=== PATIENT | female | born 1985 | race Caucasian/White ===

== ENCOUNTER 2019-01-05 22:06 | Inpatient (IN) | payer SELFPAY ==
[2019-01-05] MEDS ORDERED: Sodium Chloride 0.9% 1,000 ML IV STA (22:29)
[2019-01-05] MEDS ORDERED: cefTRIAXone 1 gm 1 GM/100 ML BAG IVPB STA (22:32)
[2019-01-05 22:41] LABS: URINE APPEARANCE CLEAR (CLEAR); URINE BILIRUBIN NEGATIVE (NEGATIVE); URINE BLOOD SMALL (NEGATIVE); URINE GLUCOSE (UA) NEGATIVE (NEGATIVE); URINE LEUKOCYTE ESTERASE SMALL Leu/uL (NEGATIVE); URINE PROTEIN NEGATIVE mg/dL (<30 mg/dL); URINE UROBILINOGEN 0.2 E.U./dL (<1 E.U./dL)
--- NOTE | 2019-01-05 22:44 | ED PDOC ---
Arrival/HPI - General Chief Complaint: Back Pain Time Seen by Provider: 01/05/19 22:09 Historian: Patient - History of Present Illness Narrative History of Present Illness (Text): 01/05/19 22:38 33 year old female, with no significant past medial history, presents to the emergency department complaining of back pain for the past few days. Patient is a poor historian. Patient reports dysuria and right flank pain. Patient denies any fever at home, but patient is noted to be febrile and tachycardic in the Emergency room. Patient reports mild cough, but denies any chills, chest pain, shortness of breath, nausea, vomiting, diarrhea, neck pain, headache, dizziness, or any other complaints. Time/Duration: Other (couple days) Symptom Onset: Gradual Symptom Course: Unchanged Activities at Onset: Light Context: Home Past Medical History - Provider Review Nursing Documentation Reviewed: Yes - Infectious Disease Hx of Infectious Diseases: None - Reproductive Currently : No - Cardiac Hx Cardiac Disorders: No - Pulmonary Hx Respiratory Disorders: No - Neurological Hx Neurological Disorder: No - HEENT Hx HEENT Disorder: No - Renal Hx Renal Disorder: No - Endocrine/Metabolic Hx Endocrine Disorders: No - Hematological/Oncological Hx Blood Transfusions: No Hx Blood Transfusion Reaction: No - Integumentary Hx Dermatological Disorder: No - Musculoskeletal/Rheumatological Hx Falls: No - Gastrointestinal Hx Gastrointestinal Disorders: No - Genitourinary/Gynecological Hx Genitourinary Disorders: No - Psychiatric Hx Psychophysiologic Disorder: No Hx Substance Use: No - Surgical History Hx Section: Yes Other/Comment: kidney stones removed 2017, here in [facility] - Anesthesia Hx Anesthesia: Yes Hx Anesthesia Reactions: No Hx Malignant Hyperthermia: No Family/Social History - Physician Review Nursing Documentation Reviewed: Yes Family/Social History: No Known Family HX Smoking Status: Former Smoker Hx Alcohol Use: No Hx Substance Use: No Allergies/Home Meds Allergies/Adverse Reactions: Allergies No Known Allergies Allergy (Verified 01/05/19 22:21) Home Medications: Home Meds Medication Instructions Recorded Confirmed RX: No Known Home Med 01/05/19 01/05/19 Review of Systems - Physician Review All systems were reviewed & negative as marked: Yes - Review of Systems Constitutional: absent: Fevers, Other (chills) Respiratory: absent: SOB Cardiovascular: absent: Chest Pain Gastrointestinal: Abdominal Pain. absent: Diarrhea, Nausea, Vomiting Genitourinary Female: Dysuria. absent: Frequency, Hematuria Musculoskeletal: Back Pain. absent: Neck Pain Neurological: absent: Headache, Dizziness Physical Exam Vital Signs Reviewed: Yes Vital Signs Temp Pulse Resp BP Pulse Ox 01/05/19 22:13 102.7 F H 132 H 19 111/70 99 Temperature: Febrile Blood Pressure: Normal Pulse: Tachycardic Respiratory Rate: Normal Appearance: Positive for: Well-Appearing, Non-Toxic, Comfortable Pain Distress: None Mental Status: Positive for: Alert and Oriented X 3 - Systems Exam Head: Present: Atraumatic, Normocephalic Pupils: Present: PERRL Extroacular Muscles: Present: EOMI Conjunctiva: Present: Normal Mouth: Present: Moist Mucous Membranes Neck: Present: Normal Range of Motion Respiratory/Chest: Present: Clear to Auscultation, Good Air Exchange. No: Respiratory Distress, Accessory Muscle Use Cardiovascular: Present: Regular Rate and Rhythm, Normal S1, S2. No: Murmurs Abdomen: Present: Tenderness (Right flank tenderness). No: Distention, Peritoneal Signs Back: Present: Normal Inspection Upper Extremity: Present: Normal Inspection. No: Cyanosis, Edema Lower Extremity: Present: Normal Inspection. No: Edema Neurological: Present: GCS=15, CN II-XII Intact, Speech Normal Skin: Present: Warm, Dry, Normal Color. No: Rashes Psychiatric: Present: Alert, Oriented x 3, Normal Insight, Normal Concentration Medical Decision Making ED Course and Treatment: 01/05/19 22:35 Impression: 33 year old female presents complaining of right flank pain, dysuria, and mild cough for the past few days. suspect pyelo Plan: -- VBG -- EKG -- Labs -- Chest X-ray -- Rocephin, IV Fluids, Tylenol -- Blood Culture, Urine Culture -- POC Urine test -- HCG, Qualitative urine -- Urinalysis w/ micro -- Reassess and disposition Progress Notes: 01/06/19 00:00 CXR Impression: As read by me, negative. CT SCAN OF THE ABDOMEN AND PELVIS WITHOUT ORAL OR IV CONTRAST. Electronically signed on Jan 06, 2019 12:18:29 AM EST by: Iram Chaudhary M.D IMPRESSION: Mild thickening of the bladder. Underdistention versus mild cystitis. Mild fullness of the right collecting system. Possibly ascending urinary tract infection. Mild ileus. 01/06/19 00:23 Case discussed with medical assistant internal medicine and Dr. Taco Solano who is aware and agrees with the plan. Accepts patient into hospitalist service. pt needs iv ntibiotics for suspect uro sepsis pyelo 01/06/19 00:32 ekg nsr [address] wave changes 01/06/19 06:12 - Lab Interpretations I have reviewed the lab results: Yes - RAD Interpretation Radiology Orders: 01/05/19 22:29 CHEST PORTABLE [RAD] Stat Soft Metals Hand Engraver: ED Physician - EKG Interpretation Interpreted by ED Physician: Yes Type: 12 lead EKG - Medication Orders Current Medication Orders: Sodium Chloride (Sodium Chloride 0.9%) 1,000 mls @ 999 mls/hr IV .Q1H1M STA Stop: 01/05/19 23:29 Ceftriaxone Sodium (Rocephin 1 Gram Ivpb) 1 gm in 100 mls @ 100 mls/hr IVPB STAT STA; Protocol Stop: 01/05/19 23:31 Discontinued Medications Acetaminophen (Tylenol 325mg Tab) 975 mg PO STAT STA Stop: 01/05/19 22:32 - Scribe Statement The provider has reviewed the documentation as recorded by the Yessica Hinojosa Provider Scribe Attestation: All medical record entries made by the Yessica were at my direction and personally dictated by me. I have reviewed the chart and agree that the record accurately reflects my personal performance of the history, physical exam, medical decision making, and the department course for this patient. I have also personally directed, reviewed, and agree with the discharge instructions and disposition. Disposition/Present on Arrival - Present on Arrival Any Indicators Present on Arrival: No History of DVT/PE: No History of Uncontrolled Diabetes: No Urinary Catheter: No History of Decub. Ulcer: No History Surgical Site Infection Following: None - Disposition Have Diagnosis and Disposition been Completed?: Yes Diagnosis: Pyelonephritis, UTI (urinary tract infection), Sepsis Disposition: HOSPITALIZED Disposition Time: 02:00 Patient Problems: Current Active Problems Problem Status Onset Pyelonephritis Acute Condition: STABLE
[2019-01-05 22:45] LABS: HCG,QUALITATIVE URINE NEGATIVE (NEGATIVE)
[2019-01-05 22:53] LABS: VENOUS BLOOD GAS BASE EXCESS 3.4 mmol/L (0.0-2.0); VENOUS BLOOD GAS PO2 47 mm/Hg (30-55); VENOUS BLOOD PH 7.42 (7.32-7.43)
[2019-01-05 22:57] LABS: BASO # 0.04 K/mm3 (0.0-2.0); BASO % 0.4 % (0.0-3.0); EOS # 0.4 (0.0-0.7); EOS % 3.7 % (1.5-5.0); HEMOGLOBIN 12.9 g/dL (12.0-16.0); LYMPH # 1.2 (1.2-3.4); MEAN CELL VOLUME 94.3 fl (80.0-105.0); MEAN CORPUSCULAR HEMOGLOBIN 32.1 pg (25.0-35.0); MEAN PLATELET VOLUME 9.5 fl (7.0-11.0); MONO # 1.1 (0.1-0.6); MONO % 10.4 % (1.0-6.0); RBC 4.02 10^6/uL (3.5-6.1); RED CELL DISTRIBUTION WIDTH 11.8 % (11.5-14.5); WHITE BLOOD COUNT 10.3 10^3/uL (4.5-11.0)
[2019-01-05 23:01] LABS: INR 1.12; PARTIAL THROMBOPLASTIN TIME 31.3 Seconds (26.9-38.3); PROTHROMBIN TIME 12.4 SECONDS (9.4-12.5)
[2019-01-05 23:03] LABS: ALB/GLOB RATIO 1.3 (1.1-1.8); ALBUMIN 4.7 g/dL (3.0-4.8); BLOOD UREA NITROGEN 10 mg/dL (7-21); CALCIUM 9.3 mg/dL (8.4-10.5); GFR NON-AFRICAN AMERICAN > 60
[2019-01-05 23:07] LABS: ALT/SGPT 161 U/L (7-56); AST/SGOT 161 U/L (14-36)
[2019-01-05 23:13] LABS: TROPONIN I < 0.01 ng/mL
--- NOTE | 2019-01-06 00:38 | CP.PCM.HP ---
History of Present Illness - History of Present Illness History of Present Illness: Resident History & Physical for Hospitalist Service Patient is a 33 year old female with past medical history of cholecystitis presenting with chief complaint of abdominal pain which began about 4 days prior. Pain is sharp and constant, mainly located in her right upper quadrant with radiation to her right flank. She also admits to burning with urination, subjective fevers, and nausea. She has noticed that her urine is darker and malodorous. She denies any previous UTIs. She has taken Tylenol with minimal relief. Patient states her menstrual period started today. Denies headache, dizziness, chest pain, shortness of breath, vomiting. PMH: cholecystitis PSH: cholecystectomy, SHx: denies alcohol, tobacco, illicit drug use Allergies: NKDA PMD: Dr. Singh Present on Admission - Present on Admission Any Indicators Present on Admission: No Review of Systems - Review of Systems All systems: reviewed and no additional remarkable complaints except (as stated in HPI) Past Patient History - Infectious Disease Hx of Infectious Diseases: None - Past Social History Smoking Status: Former Smoker - CARDIAC Hx Cardiac Disorders: No - PULMONARY Hx Respiratory Disorders: No - NEUROLOGICAL Hx Neurological Disorder: No - HEENT Hx HEENT Problems: No - RENAL Hx Chronic Kidney Disease: No - ENDOCRINE/METABOLIC Hx Endocrine Disorders: No - HEMATOLOGICAL/ONCOLOGICAL Hx Blood Transfusions: No Hx Blood Transfusion Reaction: No - INTEGUMENTARY Hx Dermatological Problems: No - MUSCULOSKELETAL/RHEUMATOLOGICAL Hx Falls: No - GASTROINTESTINAL Hx Gastrointestinal Disorders: No - GENITOURINARY/GYNECOLOGICAL Hx Genitourinary Disorders: No - PSYCHIATRIC Hx Psychophysiologic Disorder: No Hx Substance Use: No - SURGICAL HISTORY Hx Section: Yes Other/Comment: kidney stones removed 2017, here in [facility] - ANESTHESIA Hx Anesthesia: Yes Hx Anesthesia Reactions: No Hx Malignant Hyperthermia: No Meds Allergies/Adverse Reactions: Allergies Allergy/AdvReac Type Severity Reaction Status Date / Time No Known Allergies Allergy Verified 01/05/19 22:21 Physical Exam - Constitutional Appears: Non-toxic, No Acute Distress - Head Exam Head Exam: ATRAUMATIC, NORMOCEPHALIC - Eye Exam Eye Exam: EOMI, Normal appearance, PERRL - ENT Exam ENT Exam: Mucous Membranes Moist, Normal Exam - Neck Exam Neck exam: Positive for: Full Rom, Normal Inspection - Respiratory Exam Respiratory Exam: Clear to Auscultation Bilateral, NORMAL BREATHING PATTERN. absent: Decreased Breath Sounds, Rales, Rhonchi, Wheezes - Cardiovascular Exam Cardiovascular Exam: Tachycardia, REGULAR RHYTHM, +S1, +S2. absent: Systolic Murmur - GI/Abdominal Exam GI & Abdominal Exam: Guarding, Soft, Tenderness (RUQ). absent: Distended, Firm, Mass, Rebound, Rigid - Extremities Exam Extremities exam: Positive for: normal capillary refill, pedal pulses present. Negative for: calf tenderness, pedal edema - Back Exam Back exam: absent: CVA tenderness (L), CVA tenderness (R), rash noted, tenderness - Neurological Exam Neurological exam: Alert, CN II-XII Intact, Oriented x3 - Psychiatric Exam Psychiatric exam: Normal Affect - Skin Skin Exam: Dry, Intact, Normal Color, Warm Results - Vital Signs Recent Vital Signs: Last Vital Signs Temp 98.6 F 01/06/19 00:22 Pulse 107 H 01/06/19 00:22 Resp 19 01/06/19 00:22 BP 111/70 01/05/19 22:13 Pulse Ox 98 01/06/19 00:22 - Labs Result Diagrams: 01/05/19 22:48 01/05/19 22:48 Labs: Laboratory Results - last 24 hr 01/05/19 01/05/19 01/05/19 22:37 22:48 22:48 WBC 10.3 RBC 4.02 Hgb 12.9 Hct 37.9 MCV 94.3 MCH 32.1 MCHC 34.0 RDW 11.8 Plt Count 307 MPV 9.5 Neut % (Auto) 73.5 H Lymph % (Auto) 12.0 L [place] % (Auto) 10.4 H Eos % (Auto) 3.7 Baso % (Auto) 0.4 Lymph # (Auto) 1.2 [place] # (Auto) 1.1 H Eos # (Auto) 0.4 Baso # (Auto) 0.04 Absolute Neuts (auto) 7.59 H PT 12.4 INR 1.12 APTT 31.3 pO2 VBG pH VBG pCO2 VBG HCO3 VBG Total CO2 VBG O2 Sat (Calc) VBG Base Excess VBG Potassium Sodium Chloride Glucose Lactate FiO2 Potassium Carbon Dioxide Anion Gap BUN Creatinine Est GFR ( Amer) Est GFR (Non-Af Amer) Random Glucose Calcium Magnesium Total Bilirubin AST ALT Alkaline Phosphatase Lactate Dehydrogenase Total Creatine Kinase Troponin I Total Protein Albumin Globulin Albumin/Globulin Ratio Venous Blood Potassium Urine Color yellow Urine Appearance Clear Urine pH 6.0 Ur Specific [place] 1.020 Urine Protein Negative Urine Glucose (UA) Negative Urine Ketones Negative Urine Blood Small H Urine Nitrate Negative Urine Bilirubin Negative Urine Urobilinogen 0.2 Ur Leukocyte Esterase Small H Urine RBC 10 - 15 H Urine WBC 5 - 10 H Ur Epithelial Cells 10 - 12 H Urine HCG, Qual Negative 01/05/19 01/05/19 22:48 22:48 WBC RBC Hgb Hct MCV MCH MCHC RDW Plt Count MPV Neut % (Auto) Lymph % (Auto) [place] % (Auto) Eos % (Auto) Baso % (Auto) Lymph # (Auto) [place] # (Auto) Eos # (Auto) Baso # (Auto) Absolute Neuts (auto) PT INR APTT pO2 47 VBG pH 7.42 VBG pCO2 44.0 VBG HCO3 28.5 H VBG Total CO2 29.9 H VBG O2 Sat (Calc) 87.1 H VBG Base Excess 3.4 H VBG Potassium 3.6 Sodium 138 138.0 Chloride 102 104.0 Glucose 117 H Lactate 0.9 FiO2 21.0 Potassium 4.0 Carbon Dioxide 25 Anion Gap 14 BUN 10 Creatinine 0.6 L Est GFR ( Amer) > 60 Est GFR (Non-Af Amer) > 60 Random Glucose 115 H Calcium 9.3 Magnesium 1.8 Total Bilirubin 0.7 AST 161 H ALT 161 H Alkaline Phosphatase 123 Lactate Dehydrogenase 827 H Total Creatine Kinase 76 Troponin I < 0.01 Total Protein 8.5 H Albumin 4.7 Globulin 3.7 Albumin/Globulin Ratio 1.3 Venous Blood Potassium 3.6 Urine Color Urine Appearance Urine pH Ur Specific [place] Urine Protein Urine Glucose (UA) Urine Ketones Urine Blood Urine Nitrate Urine Bilirubin Urine Urobilinogen Ur Leukocyte Esterase Urine RBC Urine WBC Ur Epithelial Cells Urine HCG, Qual Assessment & Plan - Assessment and Plan (Free Text) Assessment: Patient is a 33 year old female with past medical history of cholecystitis presenting with chief complaint of abdominal pain and dysuria. Plan: Pyelonephritis - febrile, negative leukocytosis - CT abd pelvis shows possible ascending urinary tract infection, mild thickening of bladder, - Rocephin 1 gm IV daily - NS @ 100 ccs/hr - Motrin PRN for fever - followup urine, blood cultures Transaminitis - likely due to recent Tylenol intake - continue to monitor PPX - SCDs Case discussed with Dr. Xiomara Quijano PGY-1 - Date & Time Date: 01/06/19 Time: 00:37
[2019-01-06] MEDS ORDERED: Sodium Chloride 0.9% 1,000 ML IV SCH (01:45)
[2019-01-06 03:03] VITALS: BMI 24.0
[2019-01-06 08:38] LABS: BASO # 0.02 K/mm3 (0.0-2.0); BASO % 0.3 % (0.0-3.0); EOS # 0.2 (0.0-0.7); EOS % 3.1 % (1.5-5.0); HEMOGLOBIN 11.8 g/dL (12.0-16.0); LYMPH # 1.4 (1.2-3.4); LYMPH % 20.4 % (22.0-35.0); MEAN CELL VOLUME 95.5 fl (80.0-105.0); MEAN CORPUSCULAR HEMOGLOBIN 31.4 pg (25.0-35.0); MEAN CORPUSCULAR HGB CONC 32.9 g/dl (31.0-37.0); MEAN PLATELET VOLUME 9.2 fl (7.0-11.0); MONO # 0.6 (0.1-0.6); MONO % 8.2 % (1.0-6.0); RBC 3.76 10^6/uL (3.5-6.1); RED CELL DISTRIBUTION WIDTH 12.1 % (11.5-14.5); WHITE BLOOD COUNT 7.1 10^3/uL (4.5-11.0)
[2019-01-06 08:55] LABS: ALB/GLOB RATIO 1.2 (1.1-1.8); ALBUMIN 3.8 g/dL (3.0-4.8); ALT/SGPT 202 U/L (7-56); AST/SGOT 202 U/L (14-36); BLOOD UREA NITROGEN 7 mg/dL (7-21); CALCIUM 8.2 mg/dL (8.4-10.5); GFR NON-AFRICAN AMERICAN > 60
--- NOTE | 2019-01-06 09:29 | RAD ---
Date of service: 01/05/2019 HISTORY: sepsis COMPARISON: Comparison chest 11/07/2016 FINDINGS: LUNGS: No acute consolidation. Few discrete scattered tiny rounded densities are seen bilaterally which may secondary to vessel on end artifact however a few tiny scattered granulomata not excluded.. PLEURA: No significant pleural effusion identified, no pneumothorax apparent. CARDIOVASCULAR: No aortic atherosclerotic calcification present. Normal cardiac size. No pulmonary vascular congestion. OSSEOUS STRUCTURES: No significant abnormalities. VISUALIZED UPPER ABDOMEN: Normal. OTHER FINDINGS: None. IMPRESSION: No acute infiltrates. Questionable vessel on end artifact versus a few few scattered bilateral tiny granulomata.
[2019-01-06] MEDS: cefTRIAXone 1 gm 1 GM/100 ML BAG IVPB SCH (09:53)
[2019-01-06] MEDS: POLYETHYLENE GLYCOL 3350 17 GM/Dose PACKET PO PRN (09:53)
[2019-01-06] MEDS ORDERED: cefTRIAXone 1 gm 1 GM/100 ML BAG IVPB SCH (10:00)
--- NOTE | 2019-01-06 11:03 | CT ---
Date of service: 2019-01-05 23:20:06 PROCEDURE: CT Abdomen and Pelvis . HISTORY: Right flank pain COMPARISON: Made with prior CT scan 11/07/2016. TECHNIQUE: Contiguous axial images of the abdomen and pelvis performed without oral or intravenous contrast material. Additional 2D sagittal and coronal reformats generated. Radiation dose: Total exam DLP = 370.4 mGy-cm. This CT exam was performed using one or more of the following dose reduction techniques: Automated exposure control, adjustment of the mA and/or kV according to patient size, and/or use of iterative reconstruction technique. FINDINGS: LOWER THORAX: Heart size within range of normal. No significant pericardial effusion. Small hiatal hernia. Lung bases are clear without focal consolidation. There appears to be tiny calcified granuloma right medial lung base. LIVER: Unremarkable. No gross lesion or ductal dilatation. GALLBLADDER AND BILE DUCTS: Cholecystectomy. PANCREAS: Unremarkable. No mass. No ductal dilatation. SPLEEN: Unremarkable. No splenomegaly. ADRENALS: No adrenal lesions KIDNEYS AND URETERS: Unremarkable. No stone or hydronephrosis. There is slight fullness of the right renal collecting system and mild dilatation of the proximal 2/3 of the right ureter associated with slight wall thickening of the ureter. Findings may represent a UTI.. No evidence of nephrolithiasis BLADDER: Urinary bladder exhibits mild thick-walled appearance which may in part be due to incomplete distention however cystitis must be excluded and therefore correlation with urinalysis is recommended. REPRODUCTIVE: In situ tampon. APPENDIX: Normal appendix BOWEL: Evaluation of the bowel is somewhat limited due to the lack of oral contrast material. Stomach is collapsed with thick-walled appearance. Visualized loops of small bowel exhibit normal contour and caliber. No evidence of acute mechanical small bowel obstruction. The moderate amount of stool seen within the cecum and at ascending as well as proximal transverse colon suggesting mild fecal retention/constipation. PERITONEUM: Unremarkable. No fluid collection. No free air. LYMPH NODES: Unremarkable. No enlarged lymph nodes. VASCULATURE: Unremarkable. No aortic aneurysm. No aortic atherosclerotic calcification or mural plaque present. BONES: No fracture or destructive lesion. OTHER FINDINGS: None. IMPRESSION: Urinary bladder wall thickening with mild of fullness of the right renal collecting system and prominence of most of the right ureter with slight ureteral wall thickening. Findings may represent cystitis with ascending UTI. Clinical correlation with urinalysis. No evidence of obstructing nephrolithiasis. No evidence of acute appendicitis. Cholecystectomy.
[2019-01-06] MEDS: Sodium Chloride 0.9% 1,000 ML IV SCH ×2 (13:00→21:49)
[2019-01-06] MEDS ORDERED: Sodium Chloride 0.9% 1,000 ML IV STA (13:16)
--- NOTE | 2019-01-06 20:11 | CARD ---
APPROVED REPORT Date of service: 01/06/2019 EKG Measurement Heart [id number] <Conclusion> Sinus tachycardia Otherwise normal ECG
--- NOTE | 2019-01-06 22:48 | CP.PCM.CON ---
History of Present Illness - History of Present Illness History of Present Illness: Infectious Disease Consultation: January 06, 2019 33 yo female with past medical history of cholecystitis presenting with abdominal pain which began about 4 days prior. Pain is sharp and constant, mainly located in her right upper quadrant radiating to right flank. She states burning with urination, subjective fevers, and nausea. Her urine is darker and malodorous. Urinalysis not strongly indicative of a UTI. Fevers of 101.[address] showing possible cystitis with ascending urethritis. PMHx: Cholecystitis PSHx: Cholescystectomy Allergies: NKDA Social Hx: No tobacco, EtOH, or illicit drug use Active Medications Acetaminophen (Tylenol 325mg Tab) 650 mg PO Q6H PRN PRN Reason: Pain, moderate (4-7) Last Admin: 01/06/19 17:47 Dose: 650 mg Ceftriaxone Sodium (Rocephin 1 Gram Ivpb) 1 gm in 100 mls @ 100 mls/hr IVPB DAILY DAVID; Protocol Last Admin: 01/06/19 09:53 Dose: 100 mls/hr Sodium Chloride (Sodium Chloride 0.9%) 1,000 mls @ 125 mls/hr IV .Q8H DAVID Last Admin: 01/06/19 21:49 Dose: 125 mls/hr Ibuprofen (Motrin Tab) 400 mg PO Q6H PRN PRN Reason: Fever >100.4 F Last Admin: 01/06/19 21:52 Dose: 400 mg Polyethylene Glycol (Miralax) 17 gm PO DAILY PRN PRN Reason: Constipation Last Admin: 01/06/19 09:53 Dose: 17 gm Family Hx: none given ROS: right flank and abdominal pain, fevers NO chest pain, melena, hematuria, hematemesis, hematochezia, depression, anxi ety, vision loss, hearing loss, loss of consciousness Past Patient History - Infectious Disease Hx of Infectious Diseases: None - Past Social History Smoking Status: Former Smoker - CARDIAC Hx Cardiac Disorders: No - PULMONARY Hx Respiratory Disorders: No - NEUROLOGICAL Hx Neurological Disorder: No - HEENT Hx HEENT Problems: No - RENAL Hx Chronic Kidney Disease: No - ENDOCRINE/METABOLIC Hx Endocrine Disorders: No - HEMATOLOGICAL/ONCOLOGICAL Hx Blood Transfusions: No Hx Blood Transfusion Reaction: No - INTEGUMENTARY Hx Dermatological Problems: No - MUSCULOSKELETAL/RHEUMATOLOGICAL Hx Falls: No - GASTROINTESTINAL Hx Gastrointestinal Disorders: No - GENITOURINARY/GYNECOLOGICAL Hx Genitourinary Disorders: No - PSYCHIATRIC Hx Psychophysiologic Disorder: No Hx Substance Use: No - SURGICAL HISTORY Hx Section: Yes Other/Comment: kidney stones removed 2017, here in [facility] - ANESTHESIA Hx Anesthesia: Yes Hx Anesthesia Reactions: No Hx Malignant Hyperthermia: No Meds Allergies/Adverse Reactions: Allergies Allergy/AdvReac Type Severity Reaction Status Date / Time No Known Allergies Allergy Verified 01/05/19 22:21 - Medications Medications: Current Medications Acetaminophen (Tylenol 325mg Tab) 650 mg PO Q6H PRN PRN Reason: Pain, moderate (4-7) Last Admin: 01/06/19 17:47 Dose: 650 mg Ceftriaxone Sodium (Rocephin 1 Gram Ivpb) 1 gm in 100 mls @ 100 mls/hr IVPB DAILY DAVID; Protocol Last Admin: 01/06/19 09:53 Dose: 100 mls/hr Sodium Chloride (Sodium Chloride 0.9%) 1,000 mls @ 125 mls/hr IV .Q8H DAVID Last Admin: 01/06/19 21:49 Dose: 125 mls/hr Ibuprofen (Motrin Tab) 400 mg PO Q6H PRN PRN Reason: Fever >100.4 F Last Admin: 01/06/19 21:52 Dose: 400 mg Polyethylene Glycol (Miralax) 17 gm PO DAILY PRN PRN Reason: Constipation Last Admin: 01/06/19 09:53 Dose: 17 gm Physical Exam - Constitutional Appears: Non-toxic, No Acute Distress - Head Exam Head Exam: ATRAUMATIC, NORMOCEPHALIC - Eye Exam Eye Exam: EOMI, PERRL Pupil Exam: NORMAL ACCOMODATION, PERRL - ENT Exam ENT Exam: Mucous Membranes Moist, Normal External Ear Exam, TM's Normal Bilaterally - Neck Exam Neck exam: Positive for: Full Rom, Normal Inspection - Respiratory Exam Respiratory Exam: Clear to Auscultation Bilateral, NORMAL BREATHING PATTERN. ab sent: Rales, Rhonchi, Wheezes - Cardiovascular Exam Cardiovascular Exam: Tachycardia, RRR, +S1, +S2 - GI/Abdominal Exam GI & Abdominal Exam: Normal Bowel Sounds, Soft, Tenderness (RUQ, right flank). absent: Distended - Extremities Exam Extremities exam: Positive for: full ROM, normal inspection - Neurological Exam Neurological exam: Alert, CN II-XII Intact, Oriented x3 - Psychiatric Exam Psychiatric exam: Normal Affect, Normal Mood - Skin Skin Exam: Intact, Normal Color Results - Vital Signs Recent Vital Signs: Last Vital Signs Temp 101.8 F H 01/06/19 21:52 Pulse 54 L 01/06/19 18:00 Resp 18 01/06/19 18:00 BP 108/73 01/06/19 18:00 Pulse Ox 98 01/06/19 06:00 - Labs Result Diagrams: 01/06/19 08:26 01/06/19 08:26 Labs: Laboratory Results - last 24 hr 01/05/19 01/05/19 01/05/19 22:48 22:48 22:48 WBC 10.3 RBC 4.02 Hgb 12.9 Hct 37.9 MCV 94.3 MCH 32.1 MCHC 34.0 RDW 11.8 Plt Count 307 MPV 9.5 Neut % (Auto) 73.5 H Lymph % (Auto) 12.0 L [place] % (Auto) 10.4 H Eos % (Auto) 3.7 Baso % (Auto) 0.4 Lymph # (Auto) 1.2 [place] # (Auto) 1.1 H Eos # (Auto) 0.4 Baso # (Auto) 0.04 Absolute Neuts (auto) 7.59 H PT 12.4 INR 1.12 APTT 31.3 pO2 VBG pH VBG pCO2 VBG HCO3 VBG Total CO2 VBG O2 Sat (Calc) VBG Base Excess VBG Potassium Sodium 138 Chloride 102 Glucose Lactate FiO2 Potassium 4.0 Carbon Dioxide 25 Anion Gap 14 BUN 10 Creatinine 0.6 L Est GFR ( Amer) > 60 Est GFR (Non-Af Amer) > 60 Random Glucose 115 H Calcium 9.3 Magnesium 1.8 Total Bilirubin 0.7 AST 161 H ALT 161 H Alkaline Phosphatase 123 Lactate Dehydrogenase 827 H Total Creatine Kinase 76 Troponin I < 0.01 Total Protein 8.5 H Albumin 4.7 Globulin 3.7 Albumin/Globulin Ratio 1.3 Procalcitonin Venous Blood Potassium Acetaminophen Alcohol, Quantitative Influenza Typ A,B (EIA) 01/05/19 01/06/19 01/06/19 22:48 08:26 08:26 WBC 7.1 D RBC 3.76 Hgb 11.8 L Hct 35.9 L MCV 95.5 MCH 31.4 MCHC 32.9 RDW 12.1 Plt Count 264 MPV 9.2 Neut % (Auto) 68.0 Lymph % (Auto) 20.4 L [place] % (Auto) 8.2 H Eos % (Auto) 3.1 Baso % (Auto) 0.3 Lymph # (Auto) 1.4 [place] # (Auto) 0.6 Eos # (Auto) 0.2 Baso # (Auto) 0.02 Absolute Neuts (auto) 4.81 PT INR APTT pO2 47 VBG pH 7.42 VBG pCO2 44.0 VBG HCO3 28.5 H VBG Total CO2 29.9 H VBG O2 Sat (Calc) 87.1 H VBG Base Excess 3.4 H VBG Potassium 3.6 Sodium 138.0 139 Chloride 104.0 107 Glucose 117 H Lactate 0.9 FiO2 21.0 Potassium 3.6 Carbon Dioxide 27 Anion Gap 10 BUN 7 Creatinine 0.5 L Est GFR ( Amer) > 60 Est GFR (Non-Af Amer) > 60 Random Glucose 92 Calcium 8.2 L Magnesium Total Bilirubin 1.0 AST 202 H D ALT 202 H Alkaline Phosphatase 102 Lactate Dehydrogenase Total Creatine Kinase Troponin I Total Protein 7.0 Albumin 3.8 Globulin 3.3 Albumin/Globulin Ratio 1.2 Procalcitonin Venous Blood Potassium 3.6 Acetaminophen Alcohol, Quantitative Influenza Typ A,B (EIA) 01/06/19 01/06/19 01/06/19 12:06 12:06 12:26 WBC RBC Hgb Hct MCV MCH MCHC RDW Plt Count MPV Neut % (Auto) Lymph % (Auto) [place] % (Auto) Eos % (Auto) Baso % (Auto) Lymph # (Auto) [place] # (Auto) Eos # (Auto) Baso # (Auto) Absolute Neuts (auto) PT INR APTT pO2 VBG pH VBG pCO2 VBG HCO3 VBG Total CO2 VBG O2 Sat (Calc) VBG Base Excess VBG Potassium Sodium Chloride Glucose Lactate FiO2 Potassium Carbon Dioxide Anion Gap BUN Creatinine Est GFR ( Amer) Est GFR (Non-Af Amer) Random Glucose Calcium Magnesium Total Bilirubin AST ALT Alkaline Phosphatase Lactate Dehydrogenase Total Creatine Kinase Troponin I Total Protein Albumin Globulin Albumin/Globulin Ratio Procalcitonin 0.33 Venous Blood Potassium Acetaminophen < 10.0 L Alcohol, Quantitative < 10 Influenza Typ A,B (EIA) 01/06/19 12:26 WBC RBC Hgb Hct MCV MCH MCHC RDW Plt Count MPV Neut % (Auto) Lymph % (Auto) [place] % (Auto) Eos % (Auto) Baso % (Auto) Lymph # (Auto) [place] # (Auto) Eos # (Auto) Baso # (Auto) Absolute Neuts (auto) PT INR APTT pO2 VBG pH VBG pCO2 VBG HCO3 VBG Total CO2 VBG O2 Sat (Calc) VBG Base Excess VBG Potassium Sodium Chloride Glucose Lactate FiO2 Potassium Carbon Dioxide Anion Gap BUN Creatinine Est GFR ( Amer) Est GFR (Non-Af Amer) Random Glucose Calcium Magnesium Total Bilirubin AST ALT Alkaline Phosphatase Lactate Dehydrogenase Total Creatine Kinase Troponin I Total Protein Albumin Globulin Albumin/Globulin Ratio Procalcitonin Venous Blood Potassium Acetaminophen Alcohol, Quantitative Influenza Typ A,B (EIA) Negative for flu a/b Assessment & Plan - Assessment and Plan (Free Text) Assessment: 33 yo female with right sided abdominal pain and signs of cystitis on CT scan. Physical exam is suspicious for right sided pyelonephritis. Started on Rocephin for now. If no improvement, may need to consider use of cefepime instead. Awaiting cultures. Supportive care. Fevers up to 101.8 F. No leukocytosis. Thank you for allowing me to participate in the care of the patient, we will follow with you.
[2019-01-07] MEDS: Sodium Chloride 0.9% 1,000 ML IV SCH ×2 (05:31→13:43)
[2019-01-07 07:37] LABS: BASO # 0.02 K/mm3 (0.0-2.0); BASO % 0.2 % (0.0-3.0); EOS # 0.1 (0.0-0.7); EOS % 1.5 % (1.5-5.0); HEMOGLOBIN 10.5 g/dL (12.0-16.0); LYMPH # 1.3 (1.2-3.4); LYMPH % 15.2 % (22.0-35.0); MEAN CELL VOLUME 95.5 fl (80.0-105.0); MEAN CORPUSCULAR HEMOGLOBIN 31.3 pg (25.0-35.0); MEAN CORPUSCULAR HGB CONC 32.7 g/dl (31.0-37.0); MONO % 11.6 % (1.0-6.0); RBC 3.36 10^6/uL (3.5-6.1); RED CELL DISTRIBUTION WIDTH 12.1 % (11.5-14.5); WHITE BLOOD COUNT 8.6 10^3/uL (4.5-11.0)
[2019-01-07 08:29] LABS: ALB/GLOB RATIO 1.1 (1.1-1.8); ALBUMIN 3.4 g/dL (3.0-4.8); ALT/SGPT 277 U/L (7-56); AST/SGOT 221 U/L (14-36); BLOOD UREA NITROGEN 2 mg/dL (7-21); CALCIUM 7.8 mg/dL (8.4-10.5); GFR NON-AFRICAN AMERICAN > 60
[2019-01-07] MEDS: cefTRIAXone 1 gm 1 GM/100 ML BAG IVPB SCH (09:11)
[2019-01-07] MEDS: POLYETHYLENE GLYCOL 3350 17 GM/Dose PACKET PO PRN (09:11)
[2019-01-07] MEDS ORDERED: Potassium Chloride 40 mEq/30 ml LIQ UD PO ONE (09:28)
--- NOTE | 2019-01-07 10:36 | CP.PCM.PN ---
<Resendez,Matt - Last Filed: 01/07/19 10:26> Subjective - Date & Time of Evaluation Date of Evaluation: 01/07/19 Time of Evaluation: 09:30 - Subjective Subjective: Matt Resendez Internal Medicine Resident- Progress Note On Behalf of Hospitalist Team Subjective: Patient seen and examined at bedside. Resting comfortably in bed. No acute overnight events. Patient states abdominal pain has improved relative to baseline. Offers no new complaints at this time. Denies fever, chills, chest pain, shortness of breath, abdominal pain, nausea, vomiting, diarrhea, and constipation. 12-point review of systems negative except as indicated in the HPI Physical Examination: - Constitutional Appears: Non-toxic, No Acute Distress - Head Exam Head Exam: ATRAUMATIC, NORMOCEPHALIC - Eye Exam Eye Exam: EOMI, Normal appearance, PERRL - ENT Exam ENT Exam: Mucous Membranes Moist - Neck Exam Neck exam: Positive for: Full Rom, Normal Inspection - Respiratory Exam Respiratory Exam: Clear to Auscultation Bilateral, NORMAL BREATHING PATTERN. absent: Decreased Breath Sounds, Rales, Rhonchi, Wheezes - Cardiovascular Exam Cardiovascular Exam: RRR +S1, +S2. absent: Systolic Murmur - GI/Abdominal Exam GI & Abdominal Exam: Soft absent: Distended, Firm, Mass, Rebound, Rigid - Extremities Exam Extremities exam: Positive for: normal capillary refill, pedal pulses present. Negative for: calf tenderness, pedal edema - Back Exam Back exam: absent: CVA tenderness (L), CVA tenderness (R), rash noted, tenderness - Neurological Exam Neurological exam: Alert, CN II-XII Intact, Oriented x3 - Skin Skin Exam: Dry, Intact, Normal Color, Warm Assessment and Plan: Patient is a 33 year old female with past medical history of cholecystitis who was admitted for evaluation and treatment of abdominal pain and dysuria.Patient was found to have pyelonephritis and cystitis. Pyelonephritis, Cystitis - 01/05/2019 CT abd pelvis without contrast- Urinary bladder wall thickening with mild of fullness of the right renal collecting system and prominence of most of the right ureter with slight ureteral wall thickening. No evidence of obstructing nephrolithiasis. No evidence of acute appendicitis. - continue Rocephin 1 gm IV daily, will speak with ID for potential switch as LFTs are increasing - continue IVF NS @ 125 ccs/hr - Motrin 400mg PO q6h PRN for fever - blood cultures negative after 24 hours - urine culture positive for gram negative sudha - ID consulted (Dr. Lang)- appreciate recommendations Elevated LFTs - likely due to recent Tylenol intake - trending up, will discuss with ID for potential change in antibiotic - continue to monitor closely via CMP Prophylaxis - DVT- SCDs - GI- not indicated Patient seen, case reviewed with, and plan approved by attending physician, Dr. Lau. Objective - Vital Signs/Intake and Output Vital Signs (last 24 hours): Temp Pulse Resp BP Pulse Ox 98.7 F 101 H 19 103/63 97 01/07/19 09:00 01/07/19 06:00 01/07/19 06:00 01/07/19 06:00 01/07/19 06:00 Intake and Output: 01/07/19 01/07/19 06:59 18:59 Intake Total 2039 Output Total Balance 2036 - Medications Medications: Current Medications Ceftriaxone Sodium (Rocephin 1 Gram Ivpb) 1 gm in 100 mls @ 100 mls/hr IVPB DAILY DAVID; Protocol Last Admin: 01/07/19 09:11 Dose: 100 mls/hr Sodium Chloride (Sodium Chloride 0.9%) 1,000 mls @ 125 mls/hr IV .Q8H DAVID Last Admin: 01/07/19 05:31 Dose: 125 mls/hr Ibuprofen (Motrin Tab) 400 mg PO Q6H PRN PRN Reason: Fever >100.4 F Last Admin: 01/07/19 05:30 Dose: 400 mg Polyethylene Glycol (Miralax) 17 gm PO DAILY PRN PRN Reason: Constipation Last Admin: 01/07/19 09:11 Dose: 17 gm - Labs Labs: 01/07/19 06:50 01/07/19 06:50 PT 12.4 SECONDS (9.4-12.5) 01/05/19 22:48 INR 1.12 01/05/19 22:48 APTT 31.3 Seconds (26.9-38.3) 01/05/19 22:48 <Kanwal Lau - Last Filed: 01/07/19 14:28> Objective - Vital Signs/Intake and Output Vital Signs (last 24 hours): Temp Pulse Resp BP Pulse Ox 99.1 F 86 20 103/68 97 01/07/19 12:00 01/07/19 12:00 01/07/19 12:00 01/07/19 12:00 01/07/19 06:00 Intake and Output: 01/07/19 01/07/19 06:59 18:59 Intake Total 0 Output Total Balance 2036 - Medications Medications: Current Medications Ceftriaxone Sodium (Rocephin 1 Gram Ivpb) 1 gm in 100 mls @ 100 mls/hr IVPB DAILY DAVID; Protocol Last Admin: 01/07/19 09:11 Dose: 100 mls/hr Sodium Chloride (Sodium Chloride 0.9%) 1,000 mls @ 125 mls/hr IV .Q8H DAVID Last Admin: 01/07/19 13:43 Dose: Not Given Ibuprofen (Motrin Tab) 400 mg PO Q6H PRN PRN Reason: Fever >100.4 F Last Admin: 01/07/19 05:30 Dose: 400 mg Polyethylene Glycol (Miralax) 17 gm PO DAILY PRN PRN Reason: Constipation Last Admin: 01/07/19 09:11 Dose: 17 gm - Labs Labs: 01/07/19 06:50 01/07/19 06:50 PT 12.4 SECONDS (9.4-12.5) 01/05/19 22:48 INR 1.12 01/05/19 22:48 APTT 31.3 Seconds (26.9-38.3) 01/05/19 22:48 Attending/Attestation - Attestation I have personally seen and examined this patient.: Yes I have fully participated in the care of the patient.: Yes I have reviewed all pertinent clinical information, including history, physical exam and plan: Yes Notes (Text): 01/07/19 14:23 33 year old female with past medical history of cholecystitis s/p cholecystectomy who presented with right flank pain and dysuria. She was found to have cystitis/pyelonephritis and started on iv antibiotics. Continue to monitor fever trend. UCx is growing gram negative rods. CT abd/pelvis showed urinary bladder wall thickening with mild fullness of the right renal collecting system and prominence of most of the right ureter with slight ureteral wall thickening; no evidence of obstructing nephrolithiasis. Procalcitonin is 0.33. ID is following. Continue to monitor LFTs closely. Hepatitis panel was negat [place]. Will replete and repeat potassium. Kanwal Lau MD Hospitalist.
[2019-01-07 10:51] LABS: BARBITURATES, UR NEGATIVE (NEGATIVE); BENZODIAZEPINES, UR NEGATIVE (NEGATIVE); OPIATES, UR NEGATIVE (NEGATIVE); PHENCYCLIDINE, UR NEGATIVE (NEGATIVE)
--- NOTE | 2019-01-07 16:14 | CP.PCM.PN ---
Subjective - Date & Time of Evaluation Date of Evaluation: 01/07/19 Time of Evaluation: 13:15 - Subjective Subjective: Infectious Disease Follow Up: January 07, 2019 33 yo female with past medical history of cholecystitis presenting with abdominal pain which began about 4 days prior. Pain is sharp and constant, mainly located in her right upper quadrant radiating to right flank. She states burning with urination, subjective fevers, and nausea. Her urine is darker and malodorous. Urinalysis not strongly indicative of a UTI. Fevers of 101.[address] showing possible cystitis with ascending urethritis. Fevers up to 101.8 F in the past 24 hours and 100.8 this morning. Urine showing gram negative rods. Objective - Vital Signs/Intake and Output Vital Signs (last 24 hours): Temp Pulse Resp BP Pulse Ox 99.1 F 86 20 103/68 97 01/07/19 12:00 01/07/19 12:00 01/07/19 12:00 01/07/19 12:00 01/07/19 06:00 Intake and Output: 01/07/19 01/07/19 06:59 18:59 Intake Total 2039 Output Total 3 Balance 2036 - Medications Medications: Current Medications Sodium Chloride (Sodium Chloride 0.9%) 1,000 mls @ 125 mls/hr IV .Q8H DAVID Last Admin: 01/07/19 13:43 Dose: Not Given Cefepime HCl (Maxipime 1gm) 1 gm in 100 mls @ 100 mls/hr IVPB Q12 DAVID; Protocol Ibuprofen (Motrin Tab) 400 mg PO Q6H PRN PRN Reason: Fever >100.4 F Last Admin: 01/07/19 15:06 Dose: 400 mg Polyethylene Glycol (Miralax) 17 gm PO DAILY PRN PRN Reason: Constipation Last Admin: 01/07/19 09:11 Dose: 17 gm - Labs Labs: 01/07/19 06:50 01/07/19 06:50 PT 12.4 SECONDS (9.4-12.5) 01/05/19 22:48 INR 1.12 01/05/19 22:48 APTT 31.3 Seconds (26.9-38.3) 01/05/19 22:48 - Constitutional Appears: Non-toxic, No Acute Distress, Chronically Ill - Head Exam Head Exam: ATRAUMATIC, NORMOCEPHALIC - Eye Exam Eye Exam: EOMI, PERRL Pupil Exam: NORMAL ACCOMODATION, PERRL - ENT Exam ENT Exam: Mucous Membranes Moist, Normal External Ear Exam, TM's Normal Bilaterally - Neck Exam Neck Exam: Full ROM, Normal Inspection - Respiratory Exam Respiratory Exam: Clear to Ausculation Bilateral, NORMAL BREATHING PATTERN. absent: Rales, Rhonchi, Wheezes - Cardiovascular Exam Cardiovascular Exam: Tachycardia, +S1, +S2 - GI/Abdominal Exam GI & Abdominal Exam: Soft, Normal Bowel Sounds. absent: Distended, Tenderness - Extremities Exam Extremities Exam: Full ROM, Normal Inspection - Neurological Exam Neurological Exam: Alert, Awake, CN II-XII Intact, Oriented x3 - Psychiatric Exam Psychiatric exam: Normal Affect, Normal Mood - Skin Skin Exam: Intact, Normal Color Assessment and Plan - Assessment and Plan (Free Text) Assessment: 33 yo female with right sided abdominal pain and signs of cystitis on CT scan. Physical exam is suspicious for right sided pyelonephritis. Started on Rocephin for now. If no improvement, may need to consider use of cefepime instead. Awai ting cultures. Supportive care. Fevers still up to 101.8 F in the past 24 hours. No leukocytosis. Urine culture with gram negative rods. Switched Rocephin to Cefepime for Pseudomonas coverage as well. May need Meropenem depending on culture results and whether the patient's fevers resolve. Will give one dose of Gentamicin as well. Thank you for allowing me to participate in the care of the patient, we will follow with you.
[2019-01-07 18:14] VITALS: RESP 20; O2SAT 99
[2019-01-07] MEDS: Cefepime 1gm in NS 100ml 1 GM/100 ML BAG IVPB SCH (21:41)
[2019-01-08] MEDS: Sodium Chloride 0.9% 1,000 ML IV SCH ×2 (00:37→09:11)
[2019-01-08 07:10] LABS: BASO # 0.02 K/mm3 (0.0-2.0); BASO % 0.3 % (0.0-3.0); EOS # 0.4 (0.0-0.7); EOS % 6.2 % (1.5-5.0); HEMOGLOBIN 10.5 g/dL (12.0-16.0); LYMPH % 29.3 % (22.0-35.0); MEAN CELL VOLUME 95.5 fl (80.0-105.0); MEAN CORPUSCULAR HEMOGLOBIN 31.3 pg (25.0-35.0); MEAN CORPUSCULAR HGB CONC 32.7 g/dl (31.0-37.0); MONO # 0.8 (0.1-0.6); MONO % 11.8 % (1.0-6.0); RBC 3.36 10^6/uL (3.5-6.1); RED CELL DISTRIBUTION WIDTH 12.1 % (11.5-14.5); WHITE BLOOD COUNT 6.9 10^3/uL (4.5-11.0)
[2019-01-08 07:39] LABS: ALB/GLOB RATIO 1.1 (1.1-1.8); ALBUMIN 3.4 g/dL (3.0-4.8); ALT/SGPT 366 U/L (7-56); AST/SGOT 225 U/L (14-36); BLOOD UREA NITROGEN 4 mg/dL (7-21); CALCIUM 8.6 mg/dL (8.4-10.5); GFR NON-AFRICAN AMERICAN > 60
[2019-01-08 08:20] LABS: HEPATITIS B SURFACE AG Negative (NEGATIVE)
[2019-01-08 08:26] LABS: HEPATITIS A IGM NEGATIVE (NEGATIVE); HEPATITIS B CORE AB NEGATIVE (NEGATIVE)
[2019-01-08 08:37] LABS: HEPATITIS C ANTIBODY NEGATIVE (NEGATIVE)
[2019-01-08] MEDS: Cefepime 1gm in NS 100ml 1 GM/100 ML BAG IVPB SCH (09:13)
[2019-01-08 09:20] VITALS: BP 107/73; PULSE 79; TEMP 97.9
--- NOTE | 2019-01-08 15:02 | RAD ---
PROCEDURE: Left Hand and 2nd digit radiographs. HISTORY: unprovoked swelling COMPARISON: None. FINDINGS: BONES: Normal. No fracture. JOINTS: Normal. No osteoarthritic changes. SOFT TISSUES: Normal. OTHER FINDINGS: None. IMPRESSION: Negative study
--- NOTE | 2019-01-08 16:54 | CP.PCM.PN ---
Subjective - Date & Time of Evaluation Date of Evaluation: 01/08/19 Time of Evaluation: 15:45 - Subjective Subjective: Infectious Disease Follow Up: January 08, 2019 33 yo female with past medical history of cholecystitis presenting with abdominal pain which began about 4 days prior. Pain is sharp and constant, mainly located in her right upper quadrant radiating to right flank. She states burning with urination, subjective fevers, and nausea. Her urine is darker and malodorous. Urinalysis not strongly indicative of a UTI. Fevers of 101.[address] showing possible cystitis with ascending urethritis. Fevers up to 101.8 F in the past 48 hours and 100.8 yesterday morning. Afebrile the past 24 hours. Urine showing gram negative rods identified as E. coli. Objective - Vital Signs/Intake and Output Vital Signs (last 24 hours): Temp Pulse Resp BP Pulse Ox 97.9 F 79 20 107/73 99 01/08/19 09:20 01/08/19 09:20 01/08/19 09:20 01/08/19 09:20 01/08/19 09:20 Intake and Output: 01/08/19 01/08/19 06:59 18:59 Intake Total 2400 Output Total 0 Balance 2400 - Medications Medications: Current Medications Sodium Chloride (Sodium Chloride 0.9%) 1,000 mls @ 125 mls/hr IV .Q8H DAVID Last Admin: 01/08/19 09:11 Dose: 125 mls/hr Cefepime HCl (Maxipime 1gm) 1 gm in 100 mls @ 100 mls/hr IVPB Q12 DAVID; Protocol Last Admin: 01/08/19 09:13 Dose: 100 mls/hr Ibuprofen (Motrin Tab) 400 mg PO Q6H PRN PRN Reason: Fever >100.4 F Last Admin: 01/08/19 09:10 Dose: 400 mg Polyethylene Glycol (Miralax) 17 gm PO DAILY PRN PRN Reason: Constipation Last Admin: 01/07/19 09:11 Dose: 17 gm - Labs Labs: 01/08/19 06:45 01/08/19 06:45 PT 12.4 SECONDS (9.4-12.5) 01/05/19 22:48 INR 1.12 01/05/19 22:48 APTT 31.3 Seconds (26.9-38.3) 01/05/19 22:48 - Constitutional Appears: Non-toxic, No Acute Distress, Chronically Ill - Head Exam Head Exam: ATRAUMATIC, NORMOCEPHALIC - Eye Exam Eye Exam: EOMI, PERRL Pupil Exam: NORMAL ACCOMODATION, PERRL - ENT Exam ENT Exam: Mucous Membranes Moist, Normal External Ear Exam, TM's Normal Bilaterally - Neck Exam Neck Exam: Full ROM, Normal Inspection - Respiratory Exam Respiratory Exam: Clear to Ausculation Bilateral, NORMAL BREATHING PATTERN. absent: Rales, Rhonchi, Wheezes - Cardiovascular Exam Cardiovascular Exam: REGULAR RHYTHM, RRR, +S1, +S2 - GI/Abdominal Exam GI & Abdominal Exam: Soft, Normal Bowel Sounds. absent: Distended, Tenderness - Extremities Exam Extremities Exam: Full ROM, Normal Inspection - Neurological Exam Neurological Exam: Alert, Awake, CN II-XII Intact, Oriented x3 - Psychiatric Exam Psychiatric exam: Normal Affect, Normal Mood - Skin Skin Exam: Intact, Normal Color Assessment and Plan - Assessment and Plan (Free Text) Assessment: 33 yo female with right sided abdominal pain and signs of cystitis on CT scan. Physical exam is suspicious for right sided pyelonephritis. Started on Rocephin for now. If no improvement, may need to consider use of cefepime instead. Awaiting cultures. Supportive care. Fevers still up to 101.8 F in the past 48 hours. No leukocytosis. Urine culture with gram negative rods. Switched Rocephin to Cefepime for Pseudomonas coverage as well. May need Meropenem depending on culture results and whether the patient's fevers resolve. Will give one dose of Gentamicin as well. Afebrile the past 24 hours now. E. coli in urine cultures. Can consider use of 14 days of Cipro 500mg PO BID when ready for discharge from the hospital. Warned patient about while on the medications as the Cipro could have detrimental effects on a fetus. Thank you for allowing me to participate in the care of the patient, we will fo llow with you.
--- NOTE | 2019-01-08 17:08 | CP.PCM.DIS ---
<Anne Richards - Last Filed: 01/08/19 16:59> Provider - Provider Date of Admission: 01/06/19 00:24 Attending physician: Kanwal Lau MD Consults: 01/06/19 12:23 Physician Consult Routine Comment: Consulting Provider: Ariel Lang Consulting Physician: Ariel Lang Reason for Consult: fever, chills, pyelo Time Spent in preparation of Discharge (in minutes): 60 Diagnosis - Discharge Diagnosis (1) Pyelonephritis Status: Acute (2) UTI (urinary tract infection) Status: Acute Hospital Course - Lab Results Lab Results: Micro Results 01/05/19 13:14 Blood Blood Culture - Preliminary NO GROWTH AFTER 48 HOURS 01/05/19 22:37 Urine Random Urine Culture - Final Escherichia Coli 01/05/19 22:48 Blood Blood Culture - Preliminary NO GROWTH AFTER 48 HOURS Most Recent Lab Values WBC 6.9 10^3/uL (4.5-11.0) 01/08/19 06:45 RBC 3.36 10^6/uL (3.5-6.1) L 01/08/19 06:45 Hgb 10.5 g/dL (12.0-16.0) L 01/08/19 06:45 Hct 32.1 % (36.0-48.0) L 01/08/19 06:45 MCV 95.5 fl (80.0-105.0) 01/08/19 06:45 MCH 31.3 pg (25.0-35.0) 01/08/19 06:45 MCHC 32.7 g/dl (31.0-37.0) 01/08/19 06:45 RDW 12.1 % (11.5-14.5) 01/08/19 06:45 Plt Count 257 10^3/uL (120.0-450.0) 01/08/19 06:45 MPV 9.0 fl (7.0-11.0) 01/08/19 06:45 Neut % (Auto) 52.4 % (50.0-68.0) 01/08/19 06:45 Lymph % (Auto) 29.3 % (22.0-35.0) 01/08/19 06:45 Bath % (Auto) 11.8 % (1.0-6.0) H 01/08/19 06:45 Eos % (Auto) 6.2 % (1.5-5.0) H 01/08/19 06:45 Baso % (Auto) 0.3 % (0.0-3.0) 01/08/19 06:45 Lymph # (Auto) 2.0 (1.2-3.4) 01/08/19 06:45 Bath # (Auto) 0.8 (0.1-0.6) H 01/08/19 06:45 Eos # (Auto) 0.4 (0.0-0.7) 01/08/19 06:45 Baso # (Auto) 0.02 K/mm3 (0.0-2.0) 01/08/19 06:45 Absolute Neuts (auto) 3.64 (1.4-6.5) 01/08/19 06:45 PT 12.4 SECONDS (9.4-12.5) 01/05/19 22:48 INR 1.12 01/05/19 22:48 APTT 31.3 Seconds (26.9-38.3) 01/05/19 22:48 pO2 47 mm/Hg (30-55) 01/05/19 22:48 VBG pH 7.42 (7.32-7.43) 01/05/19 22:48 VBG pCO2 44.0 (40-60) 01/05/19 22:48 VBG HCO3 28.5 mmol/l (21-28) H 01/05/19 22:48 VBG Total CO2 29.9 mmol.L (22-28) H 01/05/19 22:48 VBG O2 Sat (Calc) 87.1 % (40-65) H 01/05/19 22:48 VBG Base Excess 3.4 mmol/L (0.0-2.0) H 01/05/19 22:48 VBG Potassium 3.6 mmol/L (3.6-5.2) 01/05/19 22:48 Sodium 138.0 mmol/L (132-148) 01/05/19 22:48 Chloride 104.0 mmol/L (98-107) 01/05/19 22:48 Glucose 117 mg/dl (65-105) H 01/05/19 22:48 Lactate 0.9 mmol/L (0.7-2.1) 01/05/19 22:48 FiO2 21.0 % 01/05/19 22:48 Sodium 139 mmol/L (132-148) 01/08/19 06:45 Potassium 4.2 mmol/L (3.6-5.0) 01/08/19 06:45 Chloride 110 mmol/L (98-107) H 01/08/19 06:45 Carbon Dioxide 23 mmol/L (21-33) 01/08/19 06:45 Anion Gap 10 (10-20) 01/08/19 06:45 BUN 4 mg/dL (7-21) L 01/08/19 06:45 Creatinine 0.4 mg/dl (0.7-1.2) L 01/08/19 06:45 Est GFR ( Amer) > 60 01/08/19 06:45 Est GFR (Non-Af Amer) > 60 01/08/19 06:45 Random Glucose 99 mg/dL (70-110) 01/08/19 06:45 Calcium 8.6 mg/dL (8.4-10.5) 01/08/19 06:45 Phosphorus 3.3 mg/dL (2.5-4.5) 01/08/19 06:45 Magnesium 2.0 mg/dL (1.7-2.2) 01/08/19 06:45 Total Bilirubin 0.6 mg/dL (0.2-1.3) 01/08/19 06:45 AST 225 U/L (14-36) H 01/08/19 06:45 ALT 366 U/L (7-56) H 01/08/19 06:45 Alkaline Phosphatase 161 U/L (38-126) H 01/08/19 06:45 Lactate Dehydrogenase 827 U/L (333-699) H 01/05/19 22:48 Total Creatine Kinase 76 U/L (35-230) 01/05/19 22:48 Troponin I < 0.01 ng/mL 01/05/19 22:48 Total Protein 6.6 g/dL (5.8-8.3) 01/08/19 06:45 Albumin 3.4 g/dL (3.0-4.8) 01/08/19 06:45 Globulin 3.2 gm/dL 01/08/19 06:45 Albumin/Globulin Ratio 1.1 (1.1-1.8) 01/08/19 06:45 Procalcitonin 0.33 NG/ML (0.19-0.49) 01/06/19 12:26 Venous Blood Potassium 3.6 mmol/L (3.6-5.2) 01/05/19 22:48 Urine Color yellow (YELLOW) 01/05/19 22:37 Urine Appearance Clear (CLEAR) 01/05/19 22:37 Urine pH 6.0 (4.7-8.0) 01/05/19 22:37 Ur Specific Clayton 1.020 (1.005-1.035) 01/05/19 22:37 Urine Protein Negative mg/dL (<30 mg/dL) 01/05/19 22:37 Urine Glucose (UA) Negative mg/dL (NEGATIVE) 01/05/19 22:37 Urine Ketones Negative mg/dL (NEGATIVE) 01/05/19 22:37 Urine Blood Small (NEGATIVE) H 01/05/19 22:37 Urine Nitrate Negative (NEGATIVE) 01/05/19 22:37 Urine Bilirubin Negative (NEGATIVE) 01/05/19 22:37 Urine Urobilinogen 0.2 E.U./dL (<1 E.U./dL) 01/05/19 22:37 Ur Leukocyte Esterase Small Fabio/uL (NEGATIVE) H 01/05/19 22:37 Urine RBC 10 - 15 /hpf (0-2) H 01/05/19 22:37 Urine WBC 5 - 10 /hpf (0-6) H 01/05/19 22:37 Ur Epithelial Cells 10 - 12 /hpf (0-5) H 01/05/19 22:37 Urine HCG, Qual Negative (NEGATIVE) 01/05/19 22:37 Urine Opiates Screen Negative (NEGATIVE) 01/07/19 10:10 Urine Methadone Screen Negative (NEGATIVE) 01/07/19 10:10 Acetaminophen < 10.0 ug/ml (10.0-20.0) L 01/06/19 12:06 Ur Barbiturates Screen Negative (NEGATIVE) 01/07/19 10:10 Ur Phencyclidine Scrn Negative (NEGATIVE) 01/07/19 10:10 Ur Amphetamines Screen Negative (NEGATIVE) 01/07/19 10:10 U Benzodiazepines Scrn Negative (NEGATIVE) 01/07/19 10:10 U Oth Cocaine Metabols Negative (NEGATIVE) 01/07/19 10:10 U Cannabinoids Screen Negative (NEGATIVE) 01/07/19 10:10 Alcohol, Quantitative < 10 mg/dL (0-10) 01/06/19 12:06 Hepatitis A IgM Ab Negative (NEGATIVE) 01/06/19 12:06 Hep Bs Antigen Negative (NEGATIVE) 01/06/19 12:06 Hep B Core IgM Ab Negative (NEGATIVE) 01/06/19 12:06 Hepatitis C Antibody Negative (NEGATIVE) 01/06/19 12:06 Influenza Typ A,B (EIA) Negative for flu a/b (NEGATIVE) 01/06/19 12:26 - Hospital Course Hospital Course: Anne Richards, PGY-1, Internal Medicine Discharge Summary for Dr. Lau 33 year old female with past medical history of cholecystitis presented to ED with chief complaint of abdominal pain which began about 4 days prior. Pain was sharp and constant, mainly located in her right upper quadrant with radiation to her right flank. She also admitted to burning with urination, subjective fevers, and nausea. She had noticed that her urine is darker and malodorous. She denied any previous UTIs. She had taken Tylenol with minimal relief. Patient stated her menstrual period had started earlier that day. Patient had no leukocytosis on presentation. Urine analysis was positive for small amount of leukocyte esterase. CT abd/pelvis without contrast showed possible ascending urinary tract infection and mild thickening of bladder. Patient was started on Rocephin 1 gm IV daily, IV NS at 100 cc/hr, and Motrin PRN for fever. Urine culture showed E. Coli. Patient was switched from Rocephin to Cefepime 1gm Q12 for Pseudomonas coverage. Blood cultures were negative. Furthermore, labwork also showed transaminitis likely due to recent increased Tylenol intake. Patient condition improved and was no longer febrile as of morning of 01/07. Patient has now been afebrile for 36 hours. On 01/08 patient complained of pain at the DIP of the left 2nd digit. Hand X ray was negative for fracture or acute changes. Patient was stable and ready for discharge on 01/08. She repoted feeling better this morning with no acute complaints. She was told to follow up with PCP. She was instructed to continue her medications that she was previously prescribed. In addition, she was told to return to the emergency department if he had any recurring or new concerning symptoms. - Date & Time of H&P Date of H&P: 01/06/19 Time of H&P: 00:34 Discharge Exam - Head Exam Head Exam: ATRAUMATIC, NORMOCEPHALIC - Eye Exam Eye Exam: EOMI, PERRL - Respiratory Exam Respiratory Exam: Clear to PA & Lateral, NORMAL BREATHING PATTERN - Cardiovascular Exam Cardiovascular Exam: REGULAR RHYTHM, RRR - GI/Abdominal Exam GI & Abdominal Exam: Normal Bowel Sounds, Soft, Tenderness (right side) - Extremities Exam Extremities exam: full ROM - Neurological Exam Neurological exam: Alert, CN II-XII Intact, Oriented x3 - Skin Skin Exam: Dry, Intact, Normal Color Discharge Plan - Discharge Medications Prescriptions: Ciprofloxacin [Cipro] 500 mg PO BID 14 Days #28 tab - Follow Up Plan Condition: STABLE Disposition: HOME/ ROUTINE Instructions: Kidney Infection (DC) Additional Instructions: You are medically stable and ready for discharge. Please follow up with PCP in 7-14 days. Please take ciprofloaxicin twice a day for 14 days for infection. Please return to the emergency department if you have any new or concerning symptoms. <Kanwal Lau - Last Filed: 01/08/19 17:36> Provider - Provider Date of Admission: 01/06/19 00:24 Attending physician: Kanwal Lau MD Consults: 01/06/19 12:23 Physician Consult Routine Comment: Consulting Provider: Ariel Lang Consulting Physician: Ariel Lang Reason for Consult: fever, chills, pyelo Hospital Course - Lab Results Lab Results: Micro Results 01/05/19 13:14 Blood Blood Culture - Preliminary NO GROWTH AFTER 48 HOURS 01/05/19 22:37 Urine Random Urine Culture - Final Escherichia Coli 01/05/19 22:48 Blood Blood Culture - Preliminary NO GROWTH AFTER 48 HOURS Most Recent Lab Values WBC 6.9 10^3/uL (4.5-11.0) 01/08/19 06:45 RBC 3.36 10^6/uL (3.5-6.1) L 01/08/19 06:45 Hgb 10.5 g/dL (12.0-16.0) L 01/08/19 06:45 Hct 32.1 % (36.0-48.0) L 01/08/19 06:45 MCV 95.5 fl (80.0-105.0) 01/08/19 06:45 MCH 31.3 pg (25.0-35.0) 01/08/19 06:45 MCHC 32.7 g/dl (31.0-37.0) 01/08/19 06:45 RDW 12.1 % (11.5-14.5) 01/08/19 06:45 Plt Count 257 10^3/uL (120.0-450.0) 01/08/19 06:45 MPV 9.0 fl (7.0-11.0) 01/08/19 06:45 Neut % (Auto) 52.4 % (50.0-68.0) 01/08/19 06:45 Lymph % (Auto) 29.3 % (22.0-35.0) 01/08/19 06:45 Bath % (Auto) 11.8 % (1.0-6.0) H 01/08/19 06:45 Eos % (Auto) 6.2 % (1.5-5.0) H 01/08/19 06:45 Baso % (Auto) 0.3 % (0.0-3.0) 01/08/19 06:45 Lymph # (Auto) 2.0 (1.2-3.4) 01/08/19 06:45 Bath # (Auto) 0.8 (0.1-0.6) H 01/08/19 06:45 Eos # (Auto) 0.4 (0.0-0.7) 01/08/19 06:45 Baso # (Auto) 0.02 K/mm3 (0.0-2.0) 01/08/19 06:45 Absolute Neuts (auto) 3.64 (1.4-6.5) 01/08/19 06:45 PT 12.4 SECONDS (9.4-12.5) 01/05/19 22:48 INR 1.12 01/05/19 22:48 APTT 31.3 Seconds (26.9-38.3) 01/05/19 22:48 pO2 47 mm/Hg (30-55) 01/05/19 22:48 VBG pH 7.42 (7.32-7.43) 01/05/19 22:48 VBG pCO2 44.0 (40-60) 01/05/19 22:48 VBG HCO3 28.5 mmol/l (21-28) H 01/05/19 22:48 VBG Total CO2 29.9 mmol.L (22-28) H 01/05/19 22:48 VBG O2 Sat (Calc) 87.1 % (40-65) H 01/05/19 22:48 VBG Base Excess 3.4 mmol/L (0.0-2.0) H 01/05/19 22:48 VBG Potassium 3.6 mmol/L (3.6-5.2) 01/05/19 22:48 Sodium 138.0 mmol/L (132-148) 01/05/19 22:48 Chloride 104.0 mmol/L (98-107) 01/05/19 22:48 Glucose 117 mg/dl (65-105) H 01/05/19 22:48 Lactate 0.9 mmol/L (0.7-2.1) 01/05/19 22:48 FiO2 21.0 % 01/05/19 22:48 Sodium 139 mmol/L (132-148) 01/08/19 06:45 Potassium 4.2 mmol/L (3.6-5.0) 01/08/19 06:45 Chloride 110 mmol/L (98-107) H 01/08/19 06:45 Carbon Dioxide 23 mmol/L (21-33) 01/08/19 06:45 Anion Gap 10 (10-20) 01/08/19 06:45 BUN 4 mg/dL (7-21) L 01/08/19 06:45 Creatinine 0.4 mg/dl (0.7-1.2) L 01/08/19 06:45 Est GFR ( Amer) > 60 01/08/19 06:45 Est GFR (Non-Af Amer) > 60 01/08/19 06:45 Random Glucose 99 mg/dL (70-110) 01/08/19 06:45 Calcium 8.6 mg/dL (8.4-10.5) 01/08/19 06:45 Phosphorus 3.3 mg/dL (2.5-4.5) 01/08/19 06:45 Magnesium 2.0 mg/dL (1.7-2.2) 01/08/19 06:45 Total Bilirubin 0.6 mg/dL (0.2-1.3) 01/08/19 06:45 AST 225 U/L (14-36) H 01/08/19 06:45 ALT 366 U/L (7-56) H 01/08/19 06:45 Alkaline Phosphatase 161 U/L (38-126) H 01/08/19 06:45 Lactate Dehydrogenase 827 U/L (333-699) H 01/05/19 22:48 Total Creatine Kinase 76 U/L (35-230) 01/05/19 22:48 Troponin I < 0.01 ng/mL 01/05/19 22:48 Total Protein 6.6 g/dL (5.8-8.3) 01/08/19 06:45 Albumin 3.4 g/dL (3.0-4.8) 01/08/19 06:45 Globulin 3.2 gm/dL 01/08/19 06:45 Albumin/Globulin Ratio 1.1 (1.1-1.8) 01/08/19 06:45 Procalcitonin 0.33 NG/ML (0.19-0.49) 01/06/19 12:26 Venous Blood Potassium 3.6 mmol/L (3.6-5.2) 01/05/19 22:48 Urine Color yellow (YELLOW) 01/05/19 22:37 Urine Appearance Clear (CLEAR) 01/05/19 22:37 Urine pH 6.0 (4.7-8.0) 01/05/19 22:37 Ur Specific [place] 1.020 (1.005-1.035) 01/05/19 22:37 Urine Protein Negative mg/dL (<30 mg/dL) 01/05/19 22:37 Urine Glucose (UA) Negative mg/dL (NEGATIVE) 01/05/19 22:37 Urine Ketones Negative mg/dL (NEGATIVE) 01/05/19 22:37 Urine Blood Small (NEGATIVE) H 01/05/19 22:37 Urine Nitrate Negative (NEGATIVE) 01/05/19 22:37 Urine Bilirubin Negative (NEGATIVE) 01/05/19 22:37 Urine Urobilinogen 0.2 E.U./dL (<1 E.U./dL) 01/05/19 22:37 Ur Leukocyte Esterase Small Fabio/uL (NEGATIVE) H 01/05/19 22:37 Urine RBC 10 - 15 /hpf (0-2) H 01/05/19 22:37 Urine WBC 5 - 10 /hpf (0-6) H 01/05/19 22:37 Ur Epithelial Cells 10 - 12 /hpf (0-5) H 01/05/19 22:37 Urine HCG, Qual Negative (NEGATIVE) 01/05/19 22:37 Urine Opiates Screen Negative (NEGATIVE) 01/07/19 10:10 Urine Methadone Screen Negative (NEGATIVE) 01/07/19 10:10 Acetaminophen < 10.0 ug/ml (10.0-20.0) L 01/06/19 12:06 Ur Barbiturates Screen Negative (NEGATIVE) 01/07/19 10:10 Ur Phencyclidine Scrn Negative (NEGATIVE) 01/07/19 10:10 Ur Amphetamines Screen Negative (NEGATIVE) 01/07/19 10:10 U Benzodiazepines Scrn Negative (NEGATIVE) 01/07/19 10:10 U Oth Cocaine Metabols Negative (NEGATIVE) 01/07/19 10:10 U Cannabinoids Screen Negative (NEGATIVE) 01/07/19 10:10 Alcohol, Quantitative < 10 mg/dL (0-10) 01/06/19 12:06 Hepatitis A IgM Ab Negative (NEGATIVE) 01/06/19 12:06 Hep Bs Antigen Negative (NEGATIVE) 01/06/19 12:06 Hep B Core IgM Ab Negative (NEGATIVE) 01/06/19 12:06 Hepatitis C Antibody Negative (NEGATIVE) 01/06/19 12:06 Influenza Typ A,B (EIA) Negative for flu a/b (NEGATIVE) 01/06/19 12:26 Attending/Attestation - Attestation I have personally seen and examined this patient.: Yes I have fully participated in the care of the patient.: Yes I have reviewed all pertinent clinical information, including history, physical exam and plan: Yes Notes (Text): 01/08/19 17:30 33 year old female with past medical history of cholecystitis s/p cholecystectomy who presented with right flank pain and dysuria. She was found to have cystitis/pyelonephritis and started on iv antibiotics. CT abd/pelvis showed urinary bladder wall thickening with mild fullness of the right renal collecting system and prominence of most of the right ureter with slight ureteral wall thickening; no evidence of obstructing nephrolithiasis. UCx grew E Coli. She has now been afebrile ~36 hrs. LFTs have been elevated, likely multifactorial secondary to excessive tylenol use at home and possibly antibiotics. Patient will be discharged home on po cipro x 14 days. Follow up with pmd. Monitor LFTs as outpatient. Avoid tylenol. Kanwal Lau MD Hospitalist.
== END 2019-01-08 16:53 | disposition home or self-care (01) | DRG 690 ==
LOC: ED 22:06 → ERH 01-06 00:24 → 2RNO 01-06 01:37 → 3RSO 01-07 18:08
PROVIDERS: ADMIT Internal Medicine; ATTEND Internal Medicine
DX: N10 Acute pyelonephritis (principal); N30.90 Cystitis, unspecified without hematuria; B96.20 Unspecified Escherichia coli [E. coli] as the cause of diseases classified elsewhere; R74.0 Nonspecific elevation of levels of transaminase and lactic acid dehydrogenase [LDH]; Z87.891 Personal history of nicotine dependence; Z87.442 Personal history of urinary calculi; Z90.49 Acquired absence of other specified parts of digestive tract

== ENCOUNTER 2019-02-08 14:07 | Outpatient (CLI) | payer OTHER | END 2019-02-08 14:08 | disposition home or self-care (01) | LOC: RAD 14:07 ==